=== PATIENT | male | born 1995 | race American Indian/Alaskan Native ===

== ENCOUNTER 2020-06-17 12:16 | Emergency (ER) | payer SELFPAY ==
[2020-06-17 12:31] VITALS: BP 121/83
== END 2020-06-17 13:00 | disposition left against medical advice (07) ==
LOC: ED 12:16
DX: R36.9 Urethral discharge, unspecified (principal); Z53.21 Procedure and treatment not carried out due to patient leaving prior to being seen by health care provider

== ENCOUNTER → 2020-06-19 14:56 | Emergency (ER) | payer SELFPAY | END | disposition left against medical advice (07) | LOC: ED 14:56 | DX: Z20.2 Contact with and (suspected) exposure to infections with a predominantly sexual mode of transmission (principal); Z53.21 Procedure and treatment not carried out due to patient leaving prior to being seen by health care provider ==